=== PATIENT | female | born 1970 | race Two or more races ===

== ENCOUNTER 2023-01-10 16:43 | Emergency (ER) | payer SELFPAY ==
[~2023-01-10] VITALS: Ht 170.2 cm; Wt 87.0 kg
[2023-01-10 16:45] VITALS: BP 110/76; PULSE 85; RESP 18; O2SAT 100
[2023-01-10] MEDS ORDERED: ONDANSETRON ODT 4 MG TAB PO ONE (17:00)
== END 2023-01-10 17:58 | disposition left against medical advice (07) ==
LOC: EDBD 16:43 → ER 16:43
DX: R11.0 Nausea (principal); F32.9 Major depressive disorder, single episode, unspecified; I10 Essential (primary) hypertension; F20.9 Schizophrenia, unspecified; F17.210 Nicotine dependence, cigarettes, uncomplicated; F12.90 Cannabis use, unspecified, uncomplicated; Z90.710 Acquired absence of both cervix and uterus; Z90.49 Acquired absence of other specified parts of digestive tract
CPT/HCPCS: Q0162